=== PATIENT | male | born 1965 | race Caucasian/White ===

== ENCOUNTER 2016-12-27 07:07 | Day surgery (SDC) | payer BC ==
--- NOTE | 2016-12-27 08:36 | Operative Note ---
PAIN SERVICE OPERATIVE REPORT DATE OF PROCEDURE: 12/27/2016. SURGEON: Jose Muñoz D.O. PREOPERATIVE DIAGNOSIS: LUMBAR RADICULITIS, ICD10 CODE M54.16 AND M54.17. PROCEDURE: Fluoroscopically guided bilateral lumbar epidural injection at L4-5. ANESTHESIA: Local sedation. ANESTHESIA PROVIDER: Jarett Doran CRNA. INDICATIONS: This patient presents with pain which is low back and bilateral legs. Examination shows tenderness in the lumbar spine. Range of motion does cause pain into the low back with extension. Diagnostic studies show a primary 4-5 disc, although 5-1 is diffusely abnormal. The current pattern is 4-5. DESCRIPTION OF PROCEDURE: Intravenous line, vital sign monitoring, intravenous sedation. Prepped and draped with sterile technique. The epidural interspace at L4-5 was marked bilaterally. The skin was infiltrated. Two separate 18- gauge Tuohy needles, one left and one right of midline. Contrast epidurogram left showed appropriate left flow characteristics. Contrast epidurogram right showed appropriate right flow characteristics. A total of 5.0 mL of 0.125% Marcaine with dexamethasone was injected, first left and then right. Both needles were removed. The back was cleaned, topical antibiotic and sterile dressing were applied. We will monitor and evaluate. Jose Muñoz D.O. Date Time JOB NUMBER: [id number] cc: Ludmila Lyon
[2016-12-27] MEDS ORDERED: LIDOCAINE 1% W/EPI 1:200,000 MPF 30ML SQ ONE (12:34)
[2016-12-27] MEDS ORDERED: BUPIVACAINE 0.5% W/EPI MPF 30 ML VIAL IVP ONE (12:34)
[2016-12-27] MEDS ORDERED: BUPIVACAINE 0.25% MPF 30ML VIAL IVP ONE (12:34)
[2016-12-27] MEDS ORDERED: DEXAMETHASONE PRESERVATIVE FREE 10MG/ML VIAL IV ONE (12:34)
[2016-12-27] MEDS ORDERED: 0.9 % SODIUM CHLORIDE 10 ML VIAL IVP ONE (12:34)
[2016-12-27] MEDS ORDERED: PROPOFOL 10 MG/ML VIAL IV ONE (14:33)
[2016-12-27] MEDS ORDERED: LIDOCAINE 2% MDV (20MG/ML) 20ML VIAL IV ONE (14:33)
[2016-12-27] MEDS ORDERED: FENTANYL PF 100MCG/2ML VIAL IV ONE (14:33)
[2016-12-27] MEDS ORDERED: MIDAZOLAM HCL 2MG/2ML VIAL IV ONE (14:33)
== END 2016-12-27 08:35 | disposition home or self-care (01) ==
LOC: SUR 07:07
PROVIDERS: ATTEND Pain Medicine Interventional Pain Medicine
DX: M54.16 Radiculopathy, lumbar region (principal); M54.17 Radiculopathy, lumbosacral region
CPT/HCPCS: 62323; 01992; J1100; J3010

== ENCOUNTER 2017-01-31 07:01 | Day surgery (SDC) | payer BC ==
[2017-01-31] MEDS ORDERED: BUPIVACAINE 0.5% W/EPI MPF 30 ML VIAL IVP ONE (11:17)
[2017-01-31] MEDS ORDERED: BUPIVACAINE 0.25% MPF 30ML VIAL IVP ONE (11:17)
[2017-01-31] MEDS ORDERED: LIDOCAINE 1% W/EPI 1:200,000 MPF 30ML SQ ONE (11:17)
[2017-01-31] MEDS ORDERED: DEXAMETHASONE PRESERVATIVE FREE 10MG/ML VIAL IV ONE (11:17)
[2017-01-31] MEDS ORDERED: 0.9 % SODIUM CHLORIDE 100ML BAG IV ONE (11:17)
[2017-01-31] MEDS ORDERED: MIDAZOLAM HCL 2MG/2ML VIAL IV ONE (14:00)
[2017-01-31] MEDS ORDERED: *PACU ONLY* KETAMINE HCL 10 MG/ML (20ML) VIAL IV ONE (14:00)
[2017-01-31] MEDS ORDERED: PROPOFOL 10 MG/ML VIAL IV ONE (14:00)
[2017-01-31] MEDS ORDERED: FENTANYL PF 100MCG/2ML VIAL IV ONE (14:00)
--- NOTE | 2017-01-31 15:55 | Operative Note ---
PAIN SERVICE OPERATIVE REPORT DATE OF PROCEDURE: 01/31/2017. SURGEON: Jose Muoñz D.O. PREOPERATIVE DIAGNOSIS: CERVICAL RADICULITIS, ICD10 CODE M54.13. PROCEDURE: Fluoroscopically guided cervical epidural injection at C4-5. INDICATIONS: This patient presents with pain which is in the neck and shoulder. Diagnostics show a 4-5, 5-6, and 6-7 disc. The upper level at 4-5 would appear to be the pattern of pain. ANESTHESIA: Local sedation. ANESTHESIA PROVIDER: Jarett Doran CRNA. DESCRIPTION OF PROCEDURE: Intravenous line, vital sign monitoring, intravenous sedation. Prepped and draped with sterile technique. Under imaging, the epidural interspace at C4-5 was marked and infiltrated. An 18-gauge Tuohy needle with loss of resistance. Contrast epidurogram showed extensive central flow characteristics. A total of 5.0 mL of 0.125% Marcaine with Dexamethasone was injected. The needle was removed. The neck was cleaned, topical antibiotic and sterile dressing were applied. We will monitor and evaluate. Jose Muñoz D.O. Date Time JOB NUMBER: [id number] cc: Ludmila Lyon
== END 2017-01-31 09:10 | disposition home or self-care (01) ==
LOC: SUR 07:01
PROVIDERS: ATTEND Pain Medicine Interventional Pain Medicine
DX: M54.13 Radiculopathy, cervicothoracic region (principal)
CPT/HCPCS: 62321; 01992; Q9967; J1100; J3010

== ENCOUNTER 2017-04-11 06:56 | Day surgery (SDC) | payer BC ==
[2017-04-11] MEDS ORDERED: BUPIVACAINE 0.25% MPF 30ML VIAL IVP ONE (11:48)
[2017-04-11] MEDS ORDERED: 0.9 % SODIUM CHLORIDE 100ML BAG IV ONE (11:48)
[2017-04-11] MEDS ORDERED: LIDOCAINE 1% W/EPI 1:200,000 MPF 30ML SQ ONE (11:48)
[2017-04-11] MEDS ORDERED: BUPIVACAINE 0.5% W/EPI MPF 30 ML VIAL IVP ONE (11:48)
[2017-04-11] MEDS ORDERED: DEXAMETHASONE PRESERVATIVE FREE 10MG/ML VIAL IV ONE (11:48)
[2017-04-11] MEDS ORDERED: PROPOFOL 10 MG/ML VIAL IV ONE (14:00)
[2017-04-11] MEDS ORDERED: MIDAZOLAM HCL 2MG/2ML VIAL IV ONE (14:00)
[2017-04-11] MEDS ORDERED: LIDOCAINE 2% MDV (20MG/ML) 20ML VIAL IV ONE (14:00)
--- NOTE | 2017-04-18 18:57 | Operative Note ---
DATE OF SURGERY: 04/11/2017 PREOPERATIVE DIAGNOSIS: Lumbar radiculitis, ICD10 code M54.16 and M54.17. OPERATION: Fluoroscopic-guided bilateral lumbar epidural injection at L4-5. Anesthesia: Local with sedation. Anesthesia Provider: Jarett Doran Indications: This patient presents with a history of intractable lumbar radiculitis. Diagnostics did show a 4-5, 5-1 disc with the current pattern towards the hip and outer leg as a 4-5. PROCEDURE: Intravenous line, vital sign monitoring, IV sedation. Prepped, draped , sterile technique. Under imaging, the epidural interspace at L4-5 marked bilateral, skin infiltrated. Two separate 18-francoise Tuohy needles, one left and one right of the midline. Then 5 mL of contrast epidurogram showing epidural flow characteristics left and then repeated right. Then 5 mL of 0.125% Marcaine and dexamethasone injected first left and then right. Both needles removed. Back cleaned. Topical antibiotic. Sterile dressing applied. We will monitor and evaluate. CC[facility]
== END 2017-04-11 08:43 | disposition home or self-care (01) ==
LOC: SUR 06:56
PROVIDERS: ATTEND Pain Medicine Interventional Pain Medicine
DX: M54.16 Radiculopathy, lumbar region (principal); M54.17 Radiculopathy, lumbosacral region
CPT/HCPCS: 62323; 01935; Q9967; J1100

== ENCOUNTER 2017-05-16 07:00 | Day surgery (SDC) | payer BC ==
[2017-05-16] MEDS ORDERED: 0.9 % SODIUM CHLORIDE 100ML BAG IV ONE (13:39)
[2017-05-16] MEDS ORDERED: BUPIVACAINE 0.25% MPF 30ML VIAL IVP ONE (13:39)
[2017-05-16] MEDS ORDERED: DEXAMETHASONE PRESERVATIVE FREE 10MG/ML VIAL IV ONE (13:39)
[2017-05-16] MEDS ORDERED: LIDOCAINE 1% W/EPI 1:200,000 MPF 30ML SQ ONE (13:39)
[2017-05-16] MEDS ORDERED: BUPIVACAINE 0.5% W/EPI MPF 30 ML VIAL IVP ONE (13:39)
--- NOTE | 2017-05-16 15:08 | Operative Note - Ferro ---
DATE OF SURGERY: 05/16/17 PREOPERATIVE DIAGNOSIS: LUMBAR RADICULITIS, ICD-10 CODE = M54.16 AND M54.17. OPERATION: FLUOROSCOPICALLY-GUIDED BILATERAL LUMBAR EPIDURAL INJECTION, L5/S1 WITH EPIDUROGRAM. SURGEON: AMIRA MEJIA D.O. ANESTHESIA: LOCAL SEDATION. ANESTHESIA PROVIDER: SHEEBA HENRY CRNA. INDICATION: This patient presents with pain, which starts in the butt cheek but extends into the back and legs. His diagnostics show both a 4/5 and a 5/1 disc with lateral subluxation at 4/5. PROCEDURE: Intravenous line, vital sign monitoring, IV sedation, prepped, draped, sterile technique. The epidural interspace consistent with the pattern of pain bilaterally was infiltrated. Two separate 18-gauge Tuohy needles one left and one right of the midline. 5 mL of 0.125% Marcaine with Dexamethasone injected. Needle removed. Back cleaned. Topical antibiotic. Sterile dressing applied. We will monitor and evaluate. cc: Dr. Britt JOB NUMBER: [id number] MTDD
[2017-05-16] MEDS ORDERED: PROPOFOL 10 MG/ML VIAL IV ONE (15:28)
[2017-05-16] MEDS ORDERED: LIDOCAINE 2% MDV (20MG/ML) 20ML VIAL IV ONE (15:28)
[2017-05-16] MEDS ORDERED: MIDAZOLAM HCL 2MG/2ML VIAL IV ONE (15:28)
[2017-05-16] MEDS ORDERED: FENTANYL PF 100MCG/2ML VIAL IV ONE (15:28)
== END 2017-05-16 08:35 | disposition home or self-care (01) ==
LOC: SUR 07:00
PROVIDERS: ATTEND Pain Medicine Interventional Pain Medicine
DX: M54.16 Radiculopathy, lumbar region (principal); M54.17 Radiculopathy, lumbosacral region
CPT/HCPCS: 62323; 01935; Q9967; J1100; J3010

== ENCOUNTER 2017-10-03 07:08 | Day surgery (SDC) | payer BC ==
[2017-10-03] MEDS ORDERED: BUPIVACAINE 0.75% W/EPI MPF 30ML VIAL IVP ONE (07:09)
[2017-10-03] MEDS ORDERED: FENTANYL PF 100MCG/2ML VIAL IV ONE (07:09)
[2017-10-03] MEDS ORDERED: MIDAZOLAM HCL 2MG/2ML VIAL IV ONE (07:09)
[2017-10-03] MEDS ORDERED: LIDOCAINE 1% W/EPI 1:200,000 MPF 30ML SQ ONE (07:09)
[2017-10-03] MEDS ORDERED: PROPOFOL 10 MG/ML VIAL IV ONE (07:09)
[2017-10-03] MEDS ORDERED: BUPIVACAINE 0.25% MPF 30ML VIAL IVP ONE (07:09)
[2017-10-03] MEDS ORDERED: DEXAMETHASONE PRESERVATIVE FREE 10MG/ML VIAL IV ONE (07:09)
[2017-10-03] MEDS ORDERED: 0.9 % SODIUM CHLORIDE 10 ML VIAL IVP ONE (07:09)
[2017-10-03] MEDS ORDERED: LIDOCAINE 2% MDV (20MG/ML) 20ML VIAL IV ONE (07:09)
--- NOTE | 2017-10-03 15:29 | Operative Note - Ferro ---
DATE OF SURGERY: 10/03/17 PREOPERATIVE DIAGNOSIS: LUMBAR RADICULITIS, ICD-10 CODE = M54.16 AND M54.17. OPERATION: FLUOROSCOPICALLY-GUIDED BILATERAL LUMBAR EPIDURAL INJECTION L4-5. SURGEON: AMIRA MEJIA D.O. ANESTHESIA: LOCAL SEDATION. ANESTHESIA PROVIDER: SHEEBA HENRY CRNA. INDICATION: This patient presents with pain, which is low back extending into the hips and legs. Diagnostics show both 4-5 and 5-1 disc; the current pattern is 4-5. PROCEDURE: Intravenous line, vital sign monitoring, IV sedation, prepped, draped, sterile technique. Under imaging, the epidural interspace at L4-5 identified and marked bilaterally. Skin infiltrated then two separate 18-gauge needles one left and one right of the midline. 5 mL of 0.125% Marcaine with Dexamethasone was injected at each. [place] removed. Back cleaned. Topical antibiotic. Sterile dressing applied. We will monitor and evaluate. cc: Dr. Britt JOB NUMBER: [id number] MTDD
== END 2017-10-03 09:10 | disposition home or self-care (01) ==
LOC: SUR 07:08
PROVIDERS: ATTEND Pain Medicine Interventional Pain Medicine
DX: M54.16 Radiculopathy, lumbar region (principal); M54.17 Radiculopathy, lumbosacral region
CPT/HCPCS: J3490

== ENCOUNTER 2017-11-28 07:09 | Day surgery (SDC) | payer BC ==
[2017-11-28] MEDS ORDERED: DEXAMETHASONE PRESERVATIVE FREE 10MG/ML VIAL IV ONE (07:10)
[2017-11-28] MEDS ORDERED: PROPOFOL 10 MG/ML VIAL IV ONE (07:10)
[2017-11-28] MEDS ORDERED: BUPIVACAINE 0.25% MPF 30ML VIAL IVP ONE (07:10)
[2017-11-28] MEDS ORDERED: BUPIVACAINE 0.75% W/EPI MPF 30ML VIAL IVP ONE (07:10)
[2017-11-28] MEDS ORDERED: LIDOCAINE 2% MDV (20MG/ML) 20ML VIAL IV ONE (07:10)
[2017-11-28] MEDS ORDERED: MIDAZOLAM HCL 2MG/2ML VIAL IV ONE (07:10)
[2017-11-28] MEDS ORDERED: FENTANYL PF 100MCG/2ML VIAL IV ONE (07:10)
[2017-11-28] MEDS ORDERED: LIDOCAINE 1% W/EPI 1:200,000 MPF 30ML SQ ONE (07:10)
[2017-11-28] MEDS ORDERED: 0.9 % SODIUM CHLORIDE 10 ML VIAL IVP ONE (07:10)
--- NOTE | 2017-11-28 15:10 | Operative Note - Ferro ---
DATE OF SURGERY: 11/28/17 PREOPERATIVE DIAGNOSIS: LUMBAR RADICULITIS, ICD-10 CODE = M54.16. OPERATION: FLUOROSCOPICALLY-GUIDED BILATERAL LUMBAR EPIDURAL INJECTION AT 4-5. SURGEON: AMIRA MEJIA D.O. ANESTHESIA: LOCAL SEDATION. ANESTHESIA PROVIDER: SHEEBA HENRY C.R.N.A. INDICATION: This patient presents with pain, which starts in the back but then extends towards the hips. Diagnostics do show a 4-5 disc space abnormality. PROCEDURE: Intravenous line, vital sign monitoring, IV sedation, prepped and draped with sterile technique. The epidural interspace at L4-5 identified and marked bilaterally. Skin was infiltrated. Two separate #18-gauge Tuohy needles, one left and right of the midline. 5 mL of 0.125% Marcaine with Dexamethasone injected at each. Bruce removed, back cleaned, topical antibiotic, and sterile dressing was applied. We will monitor and evaluate. cc: Dr. Britt JOB NUMBER: [id number] MTDD
== END 2017-11-28 08:34 | disposition home or self-care (01) ==
LOC: SUR 07:09
PROVIDERS: ATTEND Pain Medicine Interventional Pain Medicine
DX: M54.16 Radiculopathy, lumbar region (principal)
CPT/HCPCS: 62323; 01935; J1100; J3010; J3490

== ENCOUNTER 2018-01-02 06:51 | Day surgery (SDC) | payer BC ==
[2018-01-02] MEDS ORDERED: PROPOFOL 10 MG/ML VIAL IV ONE (06:52)
[2018-01-02] MEDS ORDERED: 0.9 % SODIUM CHLORIDE 10 ML VIAL IVP ONE (06:52)
[2018-01-02] MEDS ORDERED: LIDOCAINE 2% MDV (20MG/ML) 20ML VIAL IV ONE (06:52)
[2018-01-02] MEDS ORDERED: MIDAZOLAM HCL 2MG/2ML VIAL IV ONE (06:52)
[2018-01-02] MEDS ORDERED: BUPIVACAINE 0.25% MPF 30ML VIAL IVP ONE (06:52)
[2018-01-02] MEDS ORDERED: BUPIVACAINE 0.5% W/EPI MPF 30 ML VIAL IVP ONE (06:52)
[2018-01-02] MEDS ORDERED: LIDOCAINE 1% W/EPI 1:200,000 MPF 30ML SQ ONE (06:52)
[2018-01-02] MEDS ORDERED: FENTANYL PF 100MCG/2ML VIAL IV ONE (06:52)
[2018-01-02] MEDS ORDERED: DEXAMETHASONE PRESERVATIVE FREE 10MG/ML VIAL IV ONE (06:52)
--- NOTE | 2018-01-02 15:39 | Operative Note - Ferro ---
DATE OF SURGERY: 01/02/18 PRIMARY PHYSICIAN: DR. BRITT. PREOPERATIVE DIAGNOSIS: LUMBAR RADICULITIS, ICD-10 CODE = M54.16 AND M54.17. OPERATION: FLUOROSCOPICALLY-GUIDED BILATERAL LUMBAR EPIDURAL INJECTION L4-5 WITH EPIDUROGRAM. SURGEON: AMIRA MEJIA D.O. ANESTHESIA: LOCAL SEDATION. ANESTHESIA PROVIDER: ELAINE ALY CRNA. INDICATION: This patient presents with pain, which is bilateral low back, hip, and leg; the leg component across an outer front surface. The pattern is L4. His diagnostics show both a 4-5 and a 5-1 disc. The current pattern of pain is 4 -5. PROCEDURE: Intravenous line, vital sign monitoring, IV sedation, prepped and draped in sterile technique. Under imaging, the epidural interspace at L4-5 marked bilaterally, infiltrated and two separate 18 gauge Tuohy needles one left and one right of the midline. 5 mL of 0.125% Marcaine with Dexamethasone injected. Needle removed. Back cleaned. Topical antibiotics. Sterile dressing applied. We will monitor and evaluate. cc: Dr. Britt JOB NUMBER: [id number] MTDD
== END 2018-01-02 08:45 | disposition home or self-care (01) ==
LOC: SUR 06:51
PROVIDERS: ATTEND Pain Medicine Interventional Pain Medicine
DX: M54.16 Radiculopathy, lumbar region (principal); M54.17 Radiculopathy, lumbosacral region
CPT/HCPCS: 62323; 01936; J1100; J3010

== ENCOUNTER 2018-05-15 06:51 | Day surgery (SDC) | payer BC ==
[2018-05-15] MEDS ORDERED: LIDOCAINE 1% MDV (10MG/ML) 20ML VIAL SQ ONE (06:52)
[2018-05-15] MEDS ORDERED: LIDOCAINE 1% W/EPI 1:200,000 MPF 30ML SQ ONE (06:52)
[2018-05-15] MEDS ORDERED: BUPIVACAINE 0.5% W/EPI MPF 30 ML VIAL IVP ONE (06:52)
[2018-05-15] MEDS ORDERED: MIDAZOLAM HCL 2MG/2ML VIAL IV ONE (06:52)
[2018-05-15] MEDS ORDERED: BUPIVACAINE 0.25% MPF 30ML VIAL IVP ONE (06:52)
[2018-05-15] MEDS ORDERED: PROPOFOL 10 MG/ML VIAL IV ONE (06:52)
[2018-05-15] MEDS ORDERED: DEXAMETHASONE PRESERVATIVE FREE 10MG/ML VIAL IV ONE (06:52)
[2018-05-15] MEDS ORDERED: FENTANYL PF 100MCG/2ML VIAL IV ONE (06:52)
--- NOTE | 2018-05-15 10:19 | Operative Note - Ferro ---
DATE OF SURGERY: 05/15/18 PRIMARY CARE PHYSICIAN: DR. BRITT PREOPERATIVE DIAGNOSIS: LUMBAR RADICULOPATHY, ICD-10 CODE = M54.16. SURGERY: FLUOROSCOPIC-GUIDED BILATERAL LUMBAR EPIDURAL INJECTION L4-5. SURGEON: AMIRA MEJIA D.O. ANESTHESIA: LOCAL SEDATION. ANESTHESIA PROVIDER: OPAL SHARP CRNA INDICATIONS: This patient presents with pain, which starts in the back but then extends into the hips and legs. Diagnostics show diffuse multilevel spondylosis with disc at 4-5 with lateralized shifting and diffuse disc bulging and endplate spurring. SURGERY: Intravenous line, vital sign monitoring, IV sedation, prepped and draped sterile technique. Under imaging, the epidural interspace at L4-5 was identified and marked bilaterally, infiltrated. Two #18 gauge Tuohy needles, one left and one right of the midline. 5 mL of 0.125% Marcaine with Dexamethasone injected at each. [place] removed. Back cleaned. Topical antibiotic and sterile dressing applied. We will monitor and evaluate. cc: Dr. Britt JOB NUMBER: [id number] MTDD
== END 2018-05-15 08:29 | disposition home or self-care (01) ==
LOC: SUR 06:51
PROVIDERS: ATTEND Pain Medicine Interventional Pain Medicine
DX: M54.16 Radiculopathy, lumbar region (principal)

== ENCOUNTER 2018-06-19 06:45 | Day surgery (SDC) | payer BC ==
[2018-06-19] MEDS ORDERED: PROPOFOL 10 MG/ML VIAL IV ONE (06:46)
[2018-06-19] MEDS ORDERED: LIDOCAINE 1% W/EPI 1:200,000 MPF 30ML SQ ONE (06:46)
[2018-06-19] MEDS ORDERED: BUPIVACAINE 0.5% W/EPI MPF 30 ML VIAL IVP ONE (06:46)
[2018-06-19] MEDS ORDERED: FENTANYL PF 100MCG/2ML VIAL IV ONE (06:46)
[2018-06-19] MEDS ORDERED: LIDOCAINE 1% MDV (10MG/ML) 20ML VIAL SQ ONE (06:46)
[2018-06-19] MEDS ORDERED: MIDAZOLAM HCL 2MG/2ML VIAL IV ONE (06:46)
[2018-06-19] MEDS ORDERED: DEXAMETHASONE PRESERVATIVE FREE 10MG/ML VIAL IV ONE (06:46)
--- NOTE | 2018-06-19 15:55 | Operative Note - Ferro ---
DATE OF SURGERY: 06/19/18 PRIMARY: DR. BRITT. PREOPERATIVE DIAGNOSIS: CERVICAL RADICULOPATHY, ICD-10 CODE = M54.12. OPERATION: FLUOROSCOPICALLY-GUIDED LEFT QUADRANT CERVICAL EPIDURAL INJECTION, C5-6. SURGEON: AMIRA MEJIA D.O. ANESTHESIA: LOCAL SEDATION. ANESTHESIA PROVIDER: SHEEBA HENRY CRNA. INDICATION: This patient presents with pain, which is neck and shoulder, left greater than right but bilateral. Diagnostics show a primary 5-6 disc. PROCEDURE: Intravenous line, vital sign monitoring, IV sedation, prepped and draped in sterile technique. Under imaging, the epidural interspace at C5-6 on the left marked, infiltrated. A 20-gauge, 3.5 inch Tuohy needle with loss-of- resistance and 5 mL of 0.125% Marcaine with Dexamethasone injected. Needle removed. Neck cleaned. Topical antibiotics. Sterile dressing applied. We will monitor and evaluate. cc: Dr. Britt JOB NUMBER: [id number] MTDD
== END 2018-06-19 08:30 | disposition home or self-care (01) ==
LOC: SUR 06:45
PROVIDERS: ATTEND Pain Medicine Interventional Pain Medicine
DX: M54.12 Radiculopathy, cervical region (principal)
CPT/HCPCS: 64479; 01936; Q9967; J1100; J3010

== ENCOUNTER 2018-08-07 06:36 | Day surgery (SDC) | payer BC ==
[2018-08-07] MEDS ORDERED: LIDOCAINE 1% W/EPI 1:200,000 MPF 30ML SQ ONE (06:37)
[2018-08-07] MEDS ORDERED: DEXAMETHASONE PRESERVATIVE FREE 10MG/ML VIAL IV ONE (06:37)
[2018-08-07] MEDS ORDERED: MIDAZOLAM HCL 2MG/2ML VIAL IV ONE (06:37)
[2018-08-07] MEDS ORDERED: PROPOFOL 10 MG/ML VIAL IV ONE (06:37)
[2018-08-07] MEDS ORDERED: BUPIVACAINE 0.25% MPF 30ML VIAL IVP ONE (06:37)
[2018-08-07] MEDS ORDERED: BUPIVACAINE 0.5% W/EPI MPF 30 ML VIAL IVP ONE (06:37)
[2018-08-07] MEDS ORDERED: FENTANYL PF 100MCG/2ML VIAL IV ONE (06:37)
[2018-08-07] MEDS ORDERED: LIDOCAINE 2% MDV (20MG/ML) 20ML VIAL IV ONE (06:37)
--- NOTE | 2018-08-08 22:00 | Operative Note ---
DATE OF SURGERY: 08/07/2018 PREOPERATIVE DIAGNOSIS: LUMBAR RADICULOPATHY, ICD-10 CODE = M54.16 AND M54.17. SURGERY: FLUOROSCOPICALLY-GUIDED BILATERAL LUMBAR EPIDURAL INJECTION L4-5. PRIMARY CARE PHYSICIAN: DR. SEN LINDER SURGEON: AMIRA MEJIA D.O. ANESTHESIA: LOCAL SEDATION. ANESTHESIA PROVIDER: SHEEBA HENRY CRNA INDICATIONS: This patient presents with pain, which starts in the back but extends out towards the hips and legs to the outer front surface. The pattern is 4-5. Diagnostics show both the 4-5 and the 5-1 discs with multilevel spondylosis. SURGERY: Intravenous line, vital sign monitoring, IV sedation, prepped and draped, sterile technique. The epidural interspace bilaterally at L4-5 was marked and infiltrated. Two separate #18 gauge Tuohy needles, one left and one right of midline. 5 mL of 0.125% Marcaine with Dexamethasone injected. Needle removed. Back cleaned. Topical antibiotic. Sterile dressing applied. We will monitor and evaluate. cc: Dr. Sen Linder JOB NUMBER: [id number] MTDD
== END 2018-08-07 08:25 | disposition home or self-care (01) ==
LOC: SUR 06:36
PROVIDERS: ATTEND Pain Medicine Interventional Pain Medicine
DX: M54.16 Radiculopathy, lumbar region (principal); M54.17 Radiculopathy, lumbosacral region
CPT/HCPCS: 62323; 01936; J1100; J3010

== ENCOUNTER 2018-11-27 06:37 | Day surgery (SDC) | payer BC ==
[2018-11-27] MEDS ORDERED: PROPOFOL 10 MG/ML VIAL IV ONE (06:38)
[2018-11-27] MEDS ORDERED: MIDAZOLAM HCL 2MG/2ML VIAL IV ONE (06:38)
[2018-11-27] MEDS ORDERED: LIDOCAINE 1% W/EPI 1:200,000 MPF 30ML SQ ONE (06:38)
[2018-11-27] MEDS ORDERED: BUPIVACAINE 0.5% W/EPI MPF 30 ML VIAL IVP ONE (06:38)
[2018-11-27] MEDS ORDERED: LIDOCAINE 2% MDV (20MG/ML) 20ML VIAL IV ONE (06:38)
[2018-11-27] MEDS ORDERED: 0.9 % SODIUM CHLORIDE 10 ML VIAL IVP ONE (06:38)
[2018-11-27] MEDS ORDERED: FENTANYL PF 100MCG/2ML VIAL IV ONE (06:38)
[2018-11-27] MEDS ORDERED: BUPIVACAINE 0.25% W/EPI MPF 30ML VIAL IVP ONE (06:38)
[2018-11-27] MEDS ORDERED: DEXAMETHASONE PRESERVATIVE FREE 10MG/ML VIAL IV ONE (06:38)
--- NOTE | 2018-11-28 17:56 | Operative Note - Ferro ---
DATE OF SURGERY: 11/27/18 PREOPERATIVE DIAGNOSIS: LUMBAR RADICULOPATHY, ICD-10 CODE = M54.16 AND M54.17. OPERATION: FLUOROSCOPICALLY-GUIDED BILATERAL LUMBAR EPIDURAL INJECTION L4-5. SURGEON: AMIRA MEJIA D.O. ANESTHESIA: LOCAL SEDATION ANESTHESIA PROVIDER: SHEEBA HENRY CRNA INDICATION: This patient presents with pain, which starts in the back but then extends in the hips and legs. Diagnostics show lateralized shifting and diffuse disc abnormalities at 4-5 with a secondary 5-1 pattern. The pain is 4-5. PROCEDURE: Intravenous line, vital sign monitoring, IV sedation by anesthesia. Sterile prep. Sterile technique. Patient position prone. The epidural interspace at L4-5 marked bilaterally, skin infiltrated. Two separate 18-gauge Tuohy needles one left and one right of the midline. Contrast epidurogram showing epidural flow characteristics lateralized right to the right needle and lateralized left to the left needle. 5 mL of 0.125% Marcaine with Dexamethasone was injected, first left, then right. Both needles removed, back cleaned, topical antibiotic and sterile dressing applied. We will monitor and evaluate. cc: Dr. Britt JOB NUMBER: [id number] MTDD
== END 2018-11-27 08:32 | disposition home or self-care (01) ==
LOC: SUR 06:37
PROVIDERS: ATTEND Pain Medicine Interventional Pain Medicine
DX: M54.16 Radiculopathy, lumbar region (principal); M54.17 Radiculopathy, lumbosacral region; F17.210 Nicotine dependence, cigarettes, uncomplicated
CPT/HCPCS: 62323; 01992; J1100; J3010

== ENCOUNTER 2019-01-22 06:21 | Day surgery (SDC) | payer BC ==
[2019-01-22] MEDS ORDERED: BUPIVACAINE 0.25% MPF 30ML VIAL IVP ONE (06:22)
[2019-01-22] MEDS ORDERED: BUPIVACAINE 0.5% W/EPI MPF 30 ML VIAL IVP ONE (06:22)
[2019-01-22] MEDS ORDERED: PROPOFOL 10 MG/ML VIAL IV ONE (06:22)
[2019-01-22] MEDS ORDERED: 0.9 % SODIUM CHLORIDE 10 ML VIAL IVP ONE (06:22)
[2019-01-22] MEDS ORDERED: FENTANYL PF 100MCG/2ML VIAL IV ONE (06:22)
[2019-01-22] MEDS ORDERED: MIDAZOLAM HCL 2MG/2ML VIAL IV ONE (06:22)
[2019-01-22] MEDS ORDERED: DEXAMETHASONE PRESERVATIVE FREE 10MG/ML VIAL IV ONE (06:22)
[2019-01-22] MEDS ORDERED: LIDOCAINE 2% MDV (20MG/ML) 20ML VIAL IV ONE (06:22)
[2019-01-22] MEDS ORDERED: LIDOCAINE 1% W/EPI 1:200,000 MPF 30ML SQ ONE (06:22)
--- NOTE | 2019-01-23 06:17 | Operative Note ---
PAIN SERVICE OPERATIVE REPORT DATE OF PROCEDURE: 01/22/2019. PRIMARY CARE PHYSICIAN: Dr. Sen Linder SURGEON: Jose Muñoz D.O. PREOPERATIVE DIAGNOSIS: CERVICAL RADICULOPATHY, ICD10 CODE M54.12. POSTOPERATIVE DIAGNOSIS: CERVICAL RADICULOPATHY, ICD10 CODE M54.12. PROCEDURE: Fluoroscopically guided cervical epidural injection at C5-6. INDICATIONS: This patient presents with pain which is in the neck, shoulder, and arm. Diagnostics show diffuse, multilevel spondylolytic change with significant disc abnormalities at 5-6. DESCRIPTION OF PROCEDURE: Intravenous line, vital sign monitoring, intravenous sedation. Prepped and draped with sterile technique. The cervical epidural interspace at C5-6 was marked and infiltrated. A 20-gauge, 3.5-inch Tuohy needle was placed with loss of resistance. No blood was noted in the cerebrospinal fluid. A total of 5.0 mL of 0.125% Marcaine with dexamethasone was injected. The needle was removed. The neck was cleaned, and topical antibiotic and sterile dressing were applied. We will monitor and evaluate. JOB NUMBER: [id number] cc: Dr. Sen Linder MTDD
== END 2019-01-22 08:37 | disposition home or self-care (01) ==
LOC: SUR 06:21
PROVIDERS: ATTEND Pain Medicine Interventional Pain Medicine
DX: M54.12 Radiculopathy, cervical region (principal); F17.210 Nicotine dependence, cigarettes, uncomplicated
CPT/HCPCS: 62281; 01936; J1100; J3010

== ENCOUNTER 2019-04-23 05:39 | Day surgery (SDC) | payer BC ==
[2019-04-23] MEDS ORDERED: LIDOCAINE 2% MDV (20MG/ML) 20ML VIAL IV ONE (05:40)
[2019-04-23] MEDS ORDERED: FENTANYL PF 100MCG/2ML VIAL IV ONE (05:40)
[2019-04-23] MEDS ORDERED: MIDAZOLAM HCL 2MG/2ML VIAL IV ONE (05:40)
[2019-04-23] MEDS ORDERED: PROPOFOL 10 MG/ML VIAL IV ONE (05:40)
[2019-04-23] MEDS ORDERED: RINGERS SOLUTION,LACTATED 1,000 ML IV ONE (05:45)
[2019-04-23] MEDS ORDERED: BUPIVACAINE 0.5% W/EPI MPF 30 ML VIAL SQ ONE (07:29)
[2019-04-23] MEDS ORDERED: BUPIVACAINE 0.25% PF (2.5MG/ML) 10ML VIAL IM ONE (07:29)
[2019-04-23] MEDS ORDERED: LIDOCAINE 1% W/EPI 1:200,000 MPF 30ML SQ ONE (07:29)
[2019-04-23] MEDS ORDERED: DEXAMETHASONE PRESERVATIVE FREE 10MG/ML VIAL SQ ONE (07:30)
--- NOTE | 2019-04-24 11:11 | Operative Note ---
DATE OF SURGERY: 04/23/2019 PREOPERATIVE DIAGNOSIS: Cervical radiculopathy, ICD10 code M54.12. OPERATION: Fluoroscopic-guided cervical epidural injection C4-5. ANESTHESIA PROVIDER: Jarett Doran. INDICATION: This patient presents with pain which is neck and shoulder bilaterally. Diagnostics show a 4-5, 5-6, and disc space contraction and end plate spring. PROCEDURE: Intravenous line, vital signs monitoring, IV sedation. Prepped and draped with sterile technique. Patient positioned prone. Sterile prep. Sterile technique. The epidural interspace at C4-5 marked, infiltrated. A 20-gauge 3-1/2 inch Touhy needle with loss of resistance, 5 mL of 0.125% Marcaine with dexamethasone injected. Procedure atraumatic. No blood, no CSF. CC: Dr. Sen GREENE
== END 2019-04-23 08:00 | disposition home or self-care (01) ==
LOC: SUR 05:39
PROVIDERS: ATTEND Pain Medicine Interventional Pain Medicine
DX: M54.12 Radiculopathy, cervical region (principal); F17.210 Nicotine dependence, cigarettes, uncomplicated
CPT/HCPCS: 62321; 01992; Q9967; J1100; J3010; J7120

== ENCOUNTER 2019-07-02 06:04 | Day surgery (SDC) | payer BC ==
[2019-07-02] MEDS ORDERED: LIDOCAINE 2% MDV (20MG/ML) 20ML VIAL IV ONE (06:05)
[2019-07-02] MEDS ORDERED: PROPOFOL 10 MG/ML VIAL IV ONE (06:05)
[2019-07-02] MEDS ORDERED: MIDAZOLAM HCL 2MG/2ML VIAL IV ONE (06:05)
[2019-07-02] MEDS ORDERED: FENTANYL PF 100MCG/2ML VIAL IV ONE (06:05)
[2019-07-02] MEDS ORDERED: RINGERS SOLUTION,LACTATED 1,000 ML IV ONE (06:39)
[2019-07-02] MEDS ORDERED: DEXAMETHASONE PRESERVATIVE FREE 10MG/ML VIAL SQ ONE (07:55)
[2019-07-02] MEDS ORDERED: BUPIVACAINE 0.5% W/EPI MPF 30 ML VIAL SQ ONE (07:55)
[2019-07-02] MEDS ORDERED: BUPIVACAINE 0.25% PF (2.5MG/ML) 10ML VIAL IM ONE (07:55)
[2019-07-02] MEDS ORDERED: LIDOCAINE 1% W/EPI 1:200,000 MPF 30ML SQ ONE (07:55)
--- NOTE | 2019-07-04 09:40 | Operative Note ---
DATE OF SURGERY: 07/02/2019 PREOPERATIVE DIAGNOSIS: Lumbar radiculopathy, ICD10 code M54.16 and M54.17. OPERATION: Fluoroscopic-guided bilateral lumbar epidural injection at L4-5. ANESTHESIA: Local with sedation. ANESTHESIA PROVIDER: Jarett Doran CRNA PROCEDURE: Intravenous line, vital sign monitoring, IV sedation, prepped and draped in sterile technique. The epidural interspace bilaterally at L4-5 was marked, infiltrated. Two separate 18-gauge Tuohy needles, one left and one right of the midline, loss of resistance techniques. Atraumatic. No blood, no CSF. Then 5 mL 0.125% Marcaine with dexamethasone injected for left then right. Both needles removed. Back cleaned. Topical antibiotic and sterile dressing applied. We will monitor and evaluate. MTDD
== END 2019-07-02 08:30 | disposition home or self-care (01) ==
LOC: SUR 06:04
PROVIDERS: ATTEND Pain Medicine Interventional Pain Medicine
DX: M54.16 Radiculopathy, lumbar region (principal); M54.17 Radiculopathy, lumbosacral region; F17.210 Nicotine dependence, cigarettes, uncomplicated
CPT/HCPCS: 62323; 01992; Q9967; J1100; J3010; J7120

== ENCOUNTER 2019-12-03 05:29 | Day surgery (SDC) | payer BC ==
[2019-12-03] MEDS ORDERED: LIDOCAINE 2% MDV (20MG/ML) 20ML VIAL IV ONE (05:30)
[2019-12-03] MEDS ORDERED: FENTANYL PF 100MCG/2ML VIAL IV ONE (05:30)
[2019-12-03] MEDS ORDERED: PROPOFOL 10 MG/ML VIAL IV ONE (05:30)
[2019-12-03] MEDS ORDERED: MIDAZOLAM HCL 2MG/2ML VIAL IV ONE (05:30)
[2019-12-03] MEDS ORDERED: RINGERS SOLUTION,LACTATED 1,000 ML IV ONE (07:15)
[2019-12-03] MEDS ORDERED: BUPIVACAINE 0.5% W/EPI MPF 30 ML VIAL SQ ONE (07:20)
[2019-12-03] MEDS ORDERED: BUPIVACAINE 0.25% PF (2.5MG/ML) 10ML VIAL IM ONE (07:20)
[2019-12-03] MEDS ORDERED: LIDOCAINE 1% W/EPI 1:200,000 MPF 30ML SQ ONE (07:20)
[2019-12-03] MEDS ORDERED: DEXAMETHASONE PRESERVATIVE FREE 10MG/ML VIAL SQ ONE (07:21)
--- NOTE | 2019-12-03 13:57 | Operative Note - Ferro ---
DATE OF SURGERY: 12/03/2019 PREOPERATIVE DIAGNOSIS: LUMBAR RADICULOPATHY, ICD-10 CODE M54.16 AND M54.17. OPERATION: FLUOROSCOPICALLY GUIDED BILATERAL LUMBAR EPIDURAL INJECTION L4-L5. SURGEON: Jose Muñoz D.O. ANESTHESIA: Local sedation. ANESTHESIA PROVIDER: Jarett Doran CRNA INDICATION: This patient presents with pain which is low back, hip and leg. Diagnostics show lateral translation at L4-L5 and diffuse disk abnormalities at L4-L5. The pattern of pain is consistent with L4-L5. PROCEDURE: Intravenous line, vital sign monitoring, IV sedation, prepped and draped, sterile technique. Under imaging the epidural interspace at L4-L5 was identified and marked bilaterally, skin infiltrated through separate 18-gauge Tuohy needles, one left and one right of midline and 5 ml of 0.125% Dexamethasone was injected. The needles were removed, back cleaned, topical antibiotic, and sterile dressing applied. Will monitor and evaluate. Needle position was atraumatic. There was no blood and no CSF. The patient tolerated the procedure without difficulty. JOB NUMBER: [id number] [facility]
== END 2019-12-03 07:52 | disposition home or self-care (01) ==
LOC: SUR 05:29
PROVIDERS: ATTEND Pain Medicine Interventional Pain Medicine
DX: M54.16 Radiculopathy, lumbar region (principal); M54.17 Radiculopathy, lumbosacral region
CPT/HCPCS: 62322; 01992; J1100; J3010; J7120